=== PATIENT | male | born 1955 | race Caucasian/White ===

== ENCOUNTER 2016-11-09 17:04 | Inpatient (IN) | payer OTHER ==
[~2016-11-09] VITALS: Ht 180.3 cm; Wt 104.1 kg
[~2016-11-09 17:04] MED LIST: CHEWABLE-VITE1 EACH PO; CLARITIN10 M3 PO; COLACE100 MG PO; COMPAZINE10 MG PO; ELIQUIS5 MG PO; FLOMAX0.4 MG PO; PERCOCET 5/31 TABLET PO; ZANTAC150 MG PO; ZESTRIL20 MG PO; ZOFRAN ODT8 MG PO
[2016-11-09 18:24] LABS: EOSINOPHIL (%) 0.2 % (0-5); HEMATOCRIT 30.3 % (38.0-50.0); IMMATURE GRANULOCYTE (%) 0.6 % (0.0-0.7); IMMATURE GRANULOCYTE COUNT 1.1 K/uL; LYMPHOCYTE COUNT 0.6 K/uL (1.0-2.8); MCH 29.5 PG (29.0-34.0); MEAN PLAT.VOLUME 10.1 uM^3 (9.0-12.4); NEUTROPHIL (%) 91.3 % (45-76); NEUTROPHIL COUNT 18.1 K/uL (1.8-6.4); PLATELET COUNT 413 K/uL (156-360); RBC DIS.WIDTH-CV 14.8 % (11.8-14.6); RBC DIS.WIDTH-SD 48.2 % (39-53); RED BLOOD COUNT 3.19 M/uL (4.00-5.50); WHITE BLOOD COUNT 19.9 K/uL (4.1-10.2)
[2016-11-09 18:33] LABS: CHLORIDE 104 mEq/L (99-109); POTASSIUM 5.4 mEq/L (3.7-5.4); SODIUM 136 mEq/L (136-147)
[2016-11-09 18:35] LABS: GLUCOSE 188 mg/dL (70-99)
[2016-11-09 18:37] LABS: ANION GAP 11 MEQ/L (2-14); TOTAL BILIRUBIN 0.4 mg/dL (0.0-1.0)
[2016-11-09 18:39] LABS: ALKALINE PHOSPHATASE 102 IU/L (3-129); GFR ESTIMATE (CALCULATED) 32 mL/min/
[2016-11-09 18:40] LABS: UREA NITROGEN (BUN) 26 mg/dL (9-23)
[2016-11-09 18:44] LABS: TROP-I INTERPRETATION NEGATIVE; TROPONIN-I < 0.01 ng/mL (0.0-0.30)
[2016-11-09 19:26] LABS: ADD MIUA? YES; BILIRUBIN NEGATIVE; BLOOD LARGE; COLOR YELLOW ((YELLOW)); GLUCOSE (STRIP) NEGATIVE; KETONES NEGATIVE; LEUKOCYTES LARGE; NITRITE NEGATIVE; PROTEIN (STRIP) >=300; SPECIFIC GRAVITY 1.018 (1.000-1.030); UROBILINOGEN 0.2 MG/DL (0.2-1.0)
[2016-11-09 20:02] LABS: BACTERIA 3+; CASTS NONE SEEN /LPF; CRYSTALS NONE SEEN; EPITHELIAL CELLS NONE SEEN; MUCUS NONE SEEN; RED BLOOD CELLS TNTC /HPF (0-5); UCUL ADDED? YES; WHITE BLOOD CELLS TNTC /HPF (0-5)
[2016-11-09] MEDS ORDERED: OXYCODONE HCL5 MG PO (20:30)
[2016-11-09] MEDS ORDERED: TYLENOL EXTRA500 MG PO (20:30)
[2016-11-09 22:55] VITALS: BP 93/58
[2016-11-10 04:00] VITALS: BP 121/59
[2016-11-10 06:42] LABS: EOSINOPHIL (%) 0.2 % (0-5); HEMATOCRIT 26.2 % (38.0-50.0); IMMATURE GRANULOCYTE (%) 0.3 % (0.0-0.7); IMMATURE GRANULOCYTE COUNT 0.1 K/uL; LYMPHOCYTE COUNT 0.5 K/uL (1.0-2.8); MCH 28.8 PG (29.0-34.0); MCHC 30.5 G/DL (30.0-36.0); MCV 94.2 FL (86-99); MONOCYTE (%) 3.3 % (3-12); MONOCYTE COUNT 0.6 K/uL (0-0.8); NEUTROPHIL (%) 93.2 % (45-76); NEUTROPHIL COUNT 16.3 K/uL (1.8-6.4); RBC DIS.WIDTH-CV 15.3 % (11.8-14.6); RBC DIS.WIDTH-SD 52.8 % (39-53); RED BLOOD COUNT 2.78 M/uL (4.00-5.50); WHITE BLOOD COUNT 17.5 K/uL (4.1-10.2)
[2016-11-10 07:07] LABS: ANION GAP 11 MEQ/L (2-14); CHLORIDE 108 MEQ/L (99-109); POTASSIUM 4.9 MEQ/L (3.7-5.4); SAMPLE HEMOLYSIS CHECK 0; SAMPLE ICTERIC CHECK 0; SAMPLE LIPEMIA CHECK 0; SODIUM 138 MEQ/L (136-147); TOTAL BILIRUBIN 0.4 MG/DL (0.0-1.0)
[2016-11-10 07:12] LABS: ALKALINE PHOSPHATASE 90 IU/L (3-129); GFR ESTIMATE (CALCULATED) 34 mL/min/; GLUCOSE 150 mg/dL (70-99); UREA NITROGEN (BUN) 27 mg/dL (9-23)
[2016-11-10 08:42] LABS: Estimated Average Glucose 128 mg/dL (70-123); HEMOGLOBIN A1c (GLYCOHEMOGLOB) 6.1 % HGB (Below 5.7)
[2016-11-10 08:50] VITALS: BP 101/65
[2016-11-10 09:53] LABS: PLAT.SUFFICIENCY INCREASED; USER ID STC
[2016-11-10 12:27] VITALS: BP 99/65
[2016-11-10 16:26] LABS: POINT-OF-CARE METER ID UU14174225
[2016-11-10 20:45] VITALS: BP 111/67
[2016-11-11] VITALS: BP 104/64
[2016-11-11 03:14] VITALS: BP 126/74
[2016-11-11 06:37] LABS: EOSINOPHIL (%) 1.5 % (0-5); EOSINOPHIL COUNT 0.1 K/uL (0-0.3); HEMATOCRIT 23.2 % (38.0-50.0); IMMATURE GRANULOCYTE (%) 0.7 % (0.0-0.7); LYMPHOCYTE COUNT 0.3 K/uL (1.0-2.8); MCV 93.5 FL (86-99); MONOCYTE COUNT 0.4 K/uL (0-0.8); NEUTROPHIL (%) 84.2 % (45-76); NEUTROPHIL COUNT 4.5 K/uL (1.8-6.4); RBC DIS.WIDTH-CV 15.6 % (11.8-14.6); RBC DIS.WIDTH-SD 53.6 % (39-53); RED BLOOD COUNT 2.48 M/uL (4.00-5.50)
[2016-11-11 06:39] LABS: WHITE BLOOD COUNT 5.4 K/uL (4.1-10.2)
[2016-11-11 06:44] LABS: ANION GAP 8 MEQ/L (2-14); CHLORIDE 108 MEQ/L (99-109); GFR ESTIMATE (CALCULATED) 36 mL/min/; MAGNESIUM 1.5 mg/dl (1.3-2.7); POTASSIUM 4.8 MEQ/L (3.7-5.4); SAMPLE HEMOLYSIS CHECK 0; SAMPLE ICTERIC CHECK 0; SAMPLE LIPEMIA CHECK 0; SODIUM 137 MEQ/L (136-147); UREA NITROGEN (BUN) 26 mg/dL (9-23)
[2016-11-11 06:45] LABS: GLUCOSE 112 mg/dL (70-99)
[2016-11-11 07:16] LABS: MEAN PLAT.VOLUME 10.2 uM^3 (9.0-12.4); PLAT.SUFFICIENCY ADEQUATE; USER ID CL
[2016-11-11 07:18] LABS: PLATELET COUNT 242 K/uL (156-360)
[2016-11-11 07:44] VITALS: BP 128/80
[2016-11-11 08:26] LABS: ALKALINE PHOSPHATASE 88 IU/L (3-129); DIRECT BILIRUBIN 0.1 mg/dL (0.0-0.3); LACTATE DEHYDROGENASE 118 IU/L (20-246)
[2016-11-11 08:30] LABS: TOTAL BILIRUBIN 0.2 MG/DL (0.0-1.0)
[2016-11-11 12:00] VITALS: BP 125/80
[2016-11-11 12:17] LABS: POINT-OF-CARE METER ID UU14174225
[2016-11-11 16:00] VITALS: BP 102/68
[2016-11-11 17:15] LABS: POINT-OF-CARE METER ID UU14174225
[2016-11-11 19:31] VITALS: BP 113/69
[2016-11-12 00:10] VITALS: BP 110/70
[2016-11-12 06:50] LABS: HEMATOCRIT 23.2 % (38.0-50.0); MCH 29.5 PG (29.0-34.0); MCV 95.1 FL (86-99); MEAN PLAT.VOLUME 10.3 uM^3 (9.0-12.4); PLATELET COUNT 251 K/uL (156-360); RBC DIS.WIDTH-CV 15.9 % (11.8-14.6); RBC DIS.WIDTH-SD 55.6 % (39-53); RED BLOOD COUNT 2.44 M/uL (4.00-5.50)
[2016-11-12 06:51] LABS: WHITE BLOOD COUNT 3.4 K/uL (4.1-10.2)
[2016-11-12 06:59] LABS: BACTERIA 1+; CASTS NONE SEEN /LPF; CRYSTALS NONE SEEN; EPITHELIAL CELLS RARE; MUCUS NONE SEEN; RED BLOOD CELLS TNTC /HPF (0-5); WHITE BLOOD CELLS 20-30 /HPF (0-5)
[2016-11-12 07:00] LABS: OTHER BUDDING YEAST RARE
[2016-11-12 07:07] LABS: ALKALINE PHOSPHATASE 71 IU/L (3-129); ANION GAP 8 MEQ/L (2-14); CHLORIDE 107 MEQ/L (99-109); GFR ESTIMATE (CALCULATED) 36 mL/min/; GLUCOSE 133 mg/dL (70-99); POTASSIUM 4.5 MEQ/L (3.7-5.4); SAMPLE HEMOLYSIS CHECK 0; SAMPLE ICTERIC CHECK 0; SAMPLE LIPEMIA CHECK 0; SODIUM 136 MEQ/L (136-147); TOTAL BILIRUBIN 0.2 MG/DL (0.0-1.0); UREA NITROGEN (BUN) 27 mg/dL (9-23)
[2016-11-12 07:29] VITALS: BP 128/85
[2016-11-12 10:53] VITALS: BP 130/87
[2016-11-12] MEDS ORDERED: METRONIDAZOLE500 MG PO (15:43)
== END 2016-11-12 16:41 | disposition home or self-care (01) | DRG 872 ==
LOC: EME 17:04 → 5SOUTH 21:33 → EDOF 21:33 → 5SOUTH 22:55
PROVIDERS: Emergency Medicine; Internal Medicine; Internal Medicine Hematology & Oncology; Internal Medicine Nephrology
DX: A41.9 Sepsis, unspecified organism (principal); N17.9 Acute kidney failure, unspecified; N39.0 Urinary tract infection, site not specified; E87.2 Acidosis; N13.30 Unspecified hydronephrosis; I12.9 Hypertensive chronic kidney disease with stage 1 through stage 4 chronic kidney disease, or unspecified chronic kidney disease; D64.9 Anemia, unspecified; R73.9 Hyperglycemia, unspecified; N18.3 Chronic kidney disease, stage 3 (moderate); E78.5 Hyperlipidemia, unspecified; N20.0 Calculus of kidney; Z79.01 Long term (current) use of anticoagulants; Z85.51 Personal history of malignant neoplasm of bladder; Z86.718 Personal history of other venous thrombosis and embolism; Z87.891 Personal history of nicotine dependence
CPT/HCPCS: 36415; 74176; 76770; 80048; 80053; 80076; 81003; 81015; 82948; 83036; 83605; 83615; 83735; 84100; 84484; 85025; 85025 91; 85027; 87040; 87077; 87086; 87186; 87502; 87801; 93005; 99281; 99285; J0692; J1815; J2405; J7030; J7050

== ENCOUNTER 2016-11-28 15:28 | Inpatient (IN) | payer OTHER ==
[~2016-11-28] VITALS: Ht 180.3 cm; Wt 98.0 kg
[~2016-11-28 15:28] MED LIST changes: +METRONIDAZOLE500 MG PO; +OXYCODONE HCL5 MG PO; +TYLENOL EXTRA500 MG PO
[2016-11-28 18:46] LABS: HEMATOCRIT 32.3 % (38.0-50.0); MCH 28.2 PG (29.0-34.0); MCHC 31.3 G/DL (30.0-36.0); MCV 90.2 FL (86-99); MEAN PLAT.VOLUME 11.2 uM^3 (9.0-12.4); PLATELET COUNT 190 K/uL (156-360); RBC DIS.WIDTH-CV 15.5 % (11.8-14.6); RBC DIS.WIDTH-SD 49.3 % (39-53); RED BLOOD COUNT 3.58 M/uL (4.00-5.50)
[2016-11-28 18:52] LABS: CHLORIDE 107 mEq/L (99-109); POTASSIUM 4.6 mEq/L (3.7-5.4); SODIUM 139 mEq/L (136-147)
[2016-11-28 18:54] LABS: GLUCOSE 158 mg/dL (70-99)
[2016-11-28 18:55] LABS: ANION GAP 11 MEQ/L (2-14)
[2016-11-28 18:58] LABS: GFR ESTIMATE (CALCULATED) 31 mL/min/
[2016-11-28 18:59] LABS: UREA NITROGEN (BUN) 30 mg/dL (9-23)
[2016-11-28 19:04] LABS: TROP-I INTERPRETATION NEGATIVE; TROPONIN-I < 0.01 ng/mL (0.0-0.30)
[2016-11-28 19:57] LABS: ADD MIUA? YES; BILIRUBIN NEGATIVE; BLOOD LARGE; COLOR RED ((YELLOW)); GLUCOSE (STRIP) NEGATIVE; KETONES NEGATIVE; LEUKOCYTES LARGE; NITRITE NEGATIVE; PROTEIN (STRIP) 100; SPECIFIC GRAVITY 1.014 (1.000-1.030); UROBILINOGEN 0.2 MG/DL (0.2-1.0)
[2016-11-28 20:08] LABS: BACTERIA 2+ /HPF; CASTS NONE SEEN /LPF; CRYSTALS NONE SEEN; EPITHELIAL CELLS NONE SEEN /HPF; MUCUS NONE SEEN /LPF; RED BLOOD CELLS TNTC /HPF (0-5); UCUL ADDED? NO; WHITE BLOOD CELLS 0-5 /HPF (0-5)
[2016-11-28] MEDS ORDERED: MEN'S MULTI-VI1 EACH PO (21:17)
[2016-11-28 21:49] LABS: INFLUENZA A VIRAL ANTIGEN NEGATIVE; INFLUENZA B VIRAL ANTIGEN NEGATIVE
[2016-11-28 23:43] VITALS: BP 107/65
[2016-11-29 03:10] VITALS: BP 139/77
[2016-11-29 06:51] LABS: HEMATOCRIT 24.9 % (38.0-50.0); MCH 28.5 PG (29.0-34.0); MCHC 31.3 G/DL (30.0-36.0); MCV 90.9 FL (86-99); PLATELET COUNT 141 K/uL (156-360)
[2016-11-29 06:55] LABS: RED BLOOD COUNT 2.74 M/uL (4.00-5.50); WHITE BLOOD COUNT 6.9 K/uL (4.1-10.2)
[2016-11-29 07:00] LABS: ANION GAP 8 MEQ/L (2-14); CHLORIDE 110 MEQ/L (99-109); GFR ESTIMATE (CALCULATED) 38 mL/min/; GLUCOSE 157 mg/dL (70-99); POTASSIUM 4.1 MEQ/L (3.7-5.4); SAMPLE HEMOLYSIS CHECK 0; SAMPLE ICTERIC CHECK 0; SAMPLE LIPEMIA CHECK 0; SODIUM 138 MEQ/L (136-147); UREA NITROGEN (BUN) 30 mg/dL (9-23)
[2016-11-29 08:37] VITALS: BP 114/61
[2016-11-29 12:21] VITALS: BP 119/63
[2016-11-29 16:00] VITALS: BP 124/64
[2016-11-29 19:26] VITALS: BP 108/62
[2016-11-29 22:30] VITALS: BP 102/64
[2016-11-30 03:36] VITALS: BP 102/67
[2016-11-30 07:19] VITALS: BP 118/56
[2016-11-30 07:29] LABS: ALKALINE PHOSPHATASE 51 IU/L (3-129); ANION GAP 9 MEQ/L (2-14); CHLORIDE 111 MEQ/L (99-109); GFR ESTIMATE (CALCULATED) 43 mL/min/; GLUCOSE 119 mg/dL (70-99); POTASSIUM 3.9 MEQ/L (3.7-5.4); SAMPLE HEMOLYSIS CHECK 0; SAMPLE ICTERIC CHECK 0; SAMPLE LIPEMIA CHECK 0; SODIUM 140 MEQ/L (136-147); TOTAL BILIRUBIN 0.2 MG/DL (0.0-1.0); UREA NITROGEN (BUN) 25 mg/dL (9-23)
[2016-11-30 08:19] LABS: HEMATOCRIT 25.5 % (38.0-50.0); MCH 27.8 PG (29.0-34.0); MCHC 30.2 G/DL (30.0-36.0); MCV 92.1 FL (86-99); MEAN PLAT.VOLUME 11.7 uM^3 (9.0-12.4); PLATELET COUNT 135 K/uL (156-360); RBC DIS.WIDTH-CV 15.6 % (11.8-14.6); RBC DIS.WIDTH-SD 50.4 % (39-53); RED BLOOD COUNT 2.77 M/uL (4.00-5.50)
[2016-11-30 08:25] LABS: WHITE BLOOD COUNT 3.3 K/uL (4.1-10.2)
[2016-11-30 10:58] VITALS: BP 124/82
[2016-11-30 17:37] VITALS: BP 126/80
[2016-11-30 19:28] VITALS: BP 140/81
[2016-11-30 22:43] VITALS: BP 123/80
[2016-12-01 03:12] VITALS: BP 121/76
[2016-12-01] MEDS ORDERED: CIPRO500 MG PO (06:27)
[2016-12-01 06:56] LABS: HEMATOCRIT 27.2 % (38.0-50.0); MCH 27.7 PG (29.0-34.0); MCHC 30.9 G/DL (30.0-36.0); MCV 89.8 FL (86-99); PLATELET COUNT 163 K/uL (156-360); RBC DIS.WIDTH-SD 52.4 % (39-53); RED BLOOD COUNT 3.03 M/uL (4.00-5.50); WHITE BLOOD COUNT 3.4 K/uL (4.1-10.2)
[2016-12-01 07:19] LABS: ALKALINE PHOSPHATASE 51 IU/L (3-129); ANION GAP 8 MEQ/L (2-14); CHLORIDE 110 MEQ/L (99-109); GFR ESTIMATE (CALCULATED) 41 mL/min/; GLUCOSE 108 mg/dL (70-99); POTASSIUM 4.1 MEQ/L (3.7-5.4); SAMPLE HEMOLYSIS CHECK 0; SAMPLE ICTERIC CHECK 0; SAMPLE LIPEMIA CHECK 0; SODIUM 140 MEQ/L (136-147); TOTAL BILIRUBIN 0.2 MG/DL (0.0-1.0); UREA NITROGEN (BUN) 24 mg/dL (9-23)
[2016-12-01 08:27] VITALS: BP 126/88
== END 2016-12-01 09:30 | disposition home or self-care (01) | DRG 698 ==
LOC: EME 15:28 → EDOF 21:37 → 5EAST 21:37
PROVIDERS: Emergency Medicine; Internal Medicine
DX: N99.89 Other postprocedural complications and disorders of genitourinary system (principal); A41.9 Sepsis, unspecified organism; N17.0 Acute kidney failure with tubular necrosis; N39.0 Urinary tract infection, site not specified; N18.3 Chronic kidney disease, stage 3 (moderate); R50.9 Fever, unspecified; D63.1 Anemia in chronic kidney disease; I12.9 Hypertensive chronic kidney disease with stage 1 through stage 4 chronic kidney disease, or unspecified chronic kidney disease; E86.0 Dehydration; Z93.6 Other artificial openings of urinary tract status; Z86.718 Personal history of other venous thrombosis and embolism; Z79.01 Long term (current) use of anticoagulants; C67.9 Malignant neoplasm of bladder, unspecified
CPT/HCPCS: 71020; 74176; 80048; 80053; 81003; 83605; 84484; 85027; 86850; 86900; 86901; 87040; 87077; 87086; 87186; 87502; 93005; 99281; 99285; J0692; J2405; J3370; J7030; J7050

== ENCOUNTER 2017-02-02 13:21 | Inpatient (IN) | payer OTHER ==
[~2017-02-02] VITALS: Ht 180.3 cm; Wt 94.0 kg
[~2017-02-02 13:21] MED LIST changes: +CIPRO500 MG PO; +MEN'S MULTI-VI1 EACH PO
[2017-02-02 14:45] LABS: MEAN PLAT.VOLUME 11.8 uM^3 (9.0-12.4); PLATELET COUNT 667 K/uL (156-360)
[2017-02-02 14:52] LABS: CHLORIDE 99 mEq/L (99-109); HEMATOCRIT 30.1 % (38.0-50.0); MCH 24.4 PG (29.0-34.0); MCHC 30.9 G/DL (30.0-36.0); NRBC (%) 0.1 /100 WBC (0-0); RBC DIS.WIDTH-CV 17.7 % (11.8-14.6); RBC DIS.WIDTH-SD 50.3 % (39-53); RED BLOOD COUNT 3.81 M/uL (4.00-5.50); SODIUM 133 mEq/L (136-147)
[2017-02-02 14:53] LABS: POTASSIUM 4.7 mEq/L (3.7-5.4)
[2017-02-02 14:54] LABS: GLUCOSE 207 mg/dL (70-99); WHITE BLOOD COUNT 43.5 K/uL (4.1-10.2)
[2017-02-02 14:55] LABS: ANION GAP 21 MEQ/L (2-14)
[2017-02-02 14:56] LABS: TOTAL BILIRUBIN 0.4 mg/dL (0.0-1.0)
[2017-02-02 14:57] LABS: ALKALINE PHOSPHATASE 240 IU/L (3-129)
[2017-02-02 14:58] LABS: GFR ESTIMATE (CALCULATED) 8 mL/min/
[2017-02-02 15:15] LABS: UREA NITROGEN (BUN) 123 mg/dL (9-23)
[2017-02-02] MEDS ORDERED: HYDROCODON-ACE1 EAC7 PO (17:15)
[2017-02-02 19:00] VITALS: BP 132/85
[2017-02-02 19:46] LABS: CHLORIDE 101 mEq/L (99-109); POTASSIUM 4.7 mEq/L (3.7-5.4); SODIUM 135 mEq/L (136-147)
[2017-02-02 19:48] LABS: GLUCOSE 148 mg/dL (70-99)
[2017-02-02 19:49] LABS: ANION GAP 22 MEQ/L (2-14)
[2017-02-02 19:52] LABS: GFR ESTIMATE (CALCULATED) 9 mL/min/
[2017-02-02 19:55] LABS: UREA NITROGEN (BUN) 142 mg/dL (9-23)
[2017-02-02 20:00] VITALS: BP 120/79
[2017-02-02 21:00] VITALS: BP 120/76
[2017-02-02 21:31] VITALS: BP 111/75
[2017-02-02 22:15] VITALS: BP 105/58
[2017-02-03 03:57] VITALS: BP 110/68
[2017-02-03 06:57] LABS: POINT-OF-CARE METER ID UU14162508
[2017-02-03 07:50] VITALS: BP 118/72
[2017-02-03 07:55] LABS: HEMATOCRIT 26.1 % (38.0-50.0); MCH 24.5 PG (29.0-34.0); MCHC 30.7 G/DL (30.0-36.0); MCV 80.1 FL (86-99); NRBC (%) 0.1 /100 WBC (0-0); RBC DIS.WIDTH-CV 17.8 % (11.8-14.6); RBC DIS.WIDTH-SD 51.3 % (39-53); RED BLOOD COUNT 3.26 M/uL (4.00-5.50)
[2017-02-03 08:12] LABS: CHLORIDE 107 mEq/L (99-109); POTASSIUM 5.1 mEq/L (3.7-5.4); SODIUM 138 mEq/L (136-147)
[2017-02-03 08:14] LABS: GLUCOSE 116 mg/dL (70-99)
[2017-02-03 08:15] LABS: ANION GAP 20 MEQ/L (2-14)
[2017-02-03 08:18] LABS: GFR ESTIMATE (CALCULATED) 9 mL/min/
[2017-02-03 08:22] LABS: UREA NITROGEN (BUN) 147 mg/dL (9-23); WHITE BLOOD COUNT 31.7 K/uL (4.1-10.2)
[2017-02-03 08:53] LABS: ALKALINE PHOSPHATASE 198 IU/L (3-129); DIRECT BILIRUBIN 0.1 mg/dL (0.0-0.3); TOTAL BILIRUBIN 0.4 MG/DL (0.0-1.0)
[2017-02-03 09:21] LABS: Estimated Average Glucose 154 mg/dL (70-123)
[2017-02-03 10:18] LABS: ABS NEUTROPHIL COUNT 28.8; ANISOCYTOSIS 2+; BURR CELLS 2+; EOSINOPHIL ABS CT 0; HYPERSEGMENTATION 1+; INSTRUMENT ABS NEUTROPHIL CT 27.9 K/uL; PLATELET CLUMPS PRESENT - PLATELET COUNT APPEARS INCREASED; POIKILOCYTOSIS 2+
[2017-02-03 10:28] VITALS: BP 124/62; BP 24/62
[2017-02-03 11:39] LABS: POINT-OF-CARE METER ID UU14162508
[2017-02-03 16:20] VITALS: BP 119/69
[2017-02-03 19:26] VITALS: BP 126/74
[2017-02-03 21:44] LABS: ANION GAP 17 MEQ/L (2-14); GFR ESTIMATE (CALCULATED) 9 mL/min/; GLUCOSE 156 mg/dL (70-99); POTASSIUM 4.9 MEQ/L (3.7-5.4); SAMPLE HEMOLYSIS CHECK 0; SAMPLE ICTERIC CHECK 0; SAMPLE LIPEMIA CHECK 0; SODIUM 134 MEQ/L (136-147)
[2017-02-03 21:46] LABS: CHLORIDE 105 MEQ/L (99-109); UREA NITROGEN (BUN) 145 mg/dL (9-23)
[2017-02-03 23:56] VITALS: BP 131/70
[2017-02-04 04:12] VITALS: BP 116/72
[2017-02-04 08:38] LABS: HEMATOCRIT 26.5 % (38.0-50.0); MCH 24.7 PG (29.0-34.0); MCHC 30.6 G/DL (30.0-36.0); MCV 80.8 FL (86-99); NRBC (%) 0.2 /100 WBC (0-0); PLATELET COUNT 486 K/uL (156-360); RBC DIS.WIDTH-CV 18.2 % (11.8-14.6); RBC DIS.WIDTH-SD 53.1 % (39-53); RED BLOOD COUNT 3.28 M/uL (4.00-5.50); WHITE BLOOD COUNT 22.2 K/uL (4.1-10.2)
[2017-02-04 08:47] VITALS: BP 136/75
[2017-02-04 09:19] LABS: ALKALINE PHOSPHATASE 241 IU/L (3-129); ANION GAP 20 MEQ/L (2-14); CHLORIDE 109 MEQ/L (99-109); GFR ESTIMATE (CALCULATED) 8 mL/min/; GLUCOSE 166 mg/dL (70-99); POTASSIUM 4.7 MEQ/L (3.7-5.4); SAMPLE HEMOLYSIS CHECK 0; SAMPLE ICTERIC CHECK 0; SAMPLE LIPEMIA CHECK 0; SODIUM 140 MEQ/L (136-147)
[2017-02-04 09:20] LABS: TOTAL BILIRUBIN 0.5 MG/DL (0.0-1.0); UREA NITROGEN (BUN) 161 mg/dL (9-23)
[2017-02-04 09:37] LABS: ABS NEUTROPHIL COUNT 21.6; BAND NEUTROPHILS 1.7 % (0-8.0); BASOPHILS 0.9 %; EOSINOPHIL ABS CT 0; INSTRUMENT ABS NEUTROPHIL CT 19.7 K/uL; METAMYELOCYTES 1.8 %; SEG.NEUTROPHILS 95.6 % (46.0-76.0)
[2017-02-04] MEDS ORDERED: MORPHINE CON20 MG/M1 PO (09:39)
== END 2017-02-04 11:28 | disposition hospice, home (50) | DRG 683 ==
LOC: EME 13:21 → 2EASTP 16:59 → EDOF 16:59 → 2EASTP 16:59
PROVIDERS: Emergency Medicine; Internal Medicine
DX: N17.9 Acute kidney failure, unspecified (principal); C79.89 Secondary malignant neoplasm of other specified sites; C67.9 Malignant neoplasm of bladder, unspecified; Z87.891 Personal history of nicotine dependence; I12.9 Hypertensive chronic kidney disease with stage 1 through stage 4 chronic kidney disease, or unspecified chronic kidney disease; E11.22 Type 2 diabetes mellitus with diabetic chronic kidney disease; N18.3 Chronic kidney disease, stage 3 (moderate); N13.30 Unspecified hydronephrosis; E87.2 Acidosis; E86.9 Volume depletion, unspecified; D64.9 Anemia, unspecified; B96.1 Klebsiella pneumoniae [K. pneumoniae] as the cause of diseases classified elsewhere; Z51.5 Encounter for palliative care; D72.829 Elevated white blood cell count, unspecified
CPT/HCPCS: 71010; 74176; 80048; 80053; 80069; 80076; 81003; 82948; 83036; 83605; 84100; 85025; 85027; 87040; 87076; 87077; 87186; 87801; 99281; 99285; J1644; J1815; J2543; J7030; J7050